=== PATIENT | male | born 1970 | race Caucasian/White ===

== ENCOUNTER 2023-12-04 14:51 | Emergency (ER) | payer MEDICAID ==
[~2023-12-04] VITALS: Ht 172.7 cm; Wt 118.5 kg
[2023-12-04 14:59] VITALS: BP 129/78; PULSE 87; RESP 16; TEMP 97.7; O2SAT 97
[2023-12-04 17:15] VITALS: BP 131/80; PULSE 89; RESP 18; TEMP 98; O2SAT 98
== END 2023-12-04 18:15 | disposition left against medical advice (07) ==
LOC: MED 14:51
DX: K92.1 Melena (principal); Z53.21 Procedure and treatment not carried out due to patient leaving prior to being seen by health care provider